=== PATIENT | male | born 1985 | race Caucasian/White ===

== ENCOUNTER 2019-04-09 | Emergency (ER) | payer OTHER ==
[~2019-04-09] VITALS: Ht 180.3 cm; Wt 73.0 kg
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
--- NOTE | 2019-04-09 00:19 | NUR ---
DR OLIVER IS AT THE BEDSIDE.
[2019-04-09 00:29] LABS: BASOPHILS # (AUTO) 0.1 /CMM (0.0-0.2); HEMOGLOBIN 17.8 g/dL (13.5-17.5); LYMPHOCYTES # (AUTO) 3.4 /CMM (0.8-4.8); MONOCYTES # (AUTO) 0.7 /CMM (0.1-1.30); NEUTROPHILS # (AUTO) 7.1 /CMM (1.8-8.9)
[2019-04-09] MEDS ORDERED: IV NS 0.9% 1,000 ML BAG IV ONE (00:30)
[2019-04-09 00:32] LABS: BASOPHILS % (AUTO) 1.2 % (0.0-2.0); EOSINOPHILS % (AUTO) 0.5 % (0.0-6.0); HEMATOCRIT 52 % (39-51); LYMPHOCYTES % (AUTO) 29.8 % (20.0-44.0); MEAN CORPUSCULAR HGB CONC 34 g/dl (31.0-36.0); MEAN CORPUSCULAR VOLUME 100 fL (80-96); MONOCYTES % (AUTO) 6.6 % (2.0-12.0); NEUTROPHILS % (AUTO) 61.9 % (43.0-81.0); PLATELET COUNT (AUTO) 363 /CMM (150-450); RED BLOOD CELL COUNT(AUTO) 5.24 MIL/uL (4.5-6.0); WHITE BLOOD COUNT (AUTO) 11.4 K/uL (4.3-11.0)
--- NOTE | 2019-04-09 00:34 | NUR ---
URINE COLLECTED AND SENT TO LAB
[2019-04-09 00:43] LABS: ALBUMIN 3.8 g/dL (3.4-5.0); BILIRUBIN,DIRECT 0.1 mg/dL (0.0-0.2); BILIRUBIN,TOTAL 0.4 mg/dL (0.2-1.0); CALCIUM, SERUM 8.7 mg/dL (8.5-10.1); CREATININE 1.2 mg/dL (0.6-1.3); SALICYLATE 2.1 mg/dL (2.8-20.0); TOTAL PROTEIN, SERUM 7.8 g/dL (6.4-8.2)
[2019-04-09 00:44] LABS: POTASSIUM 2.8 mmol/L (3.5-5.1)
--- NOTE | 2019-04-09 01:00 | NUR ---
PT REQUESTED WATER. PT REC'D A CUP OF WATER AND TOLERATED PO WELL.
--- NOTE | 2019-04-09 01:05 | NUR ---
Patient is resting comfortably in bed. Easily aroused. VSS.
[2019-04-09 01:06] LABS: THYROID STIMULATING HORMONE 5.563 uIU/mL (0.358-3.74)
--- NOTE | 2019-04-09 01:43 | NUR ---
[employer] LEFT. PT IS NOT IN CUSTODY
--- NOTE | 2019-04-09 01:55 | NUR ---
PT REC'D A SECOND URINE.
[2019-04-09] MEDS ORDERED: POTASSIUM CHLORIDE 20 MEQ TAB.PRT.SR PO ONE ×2 (02:15→02:30)
--- NOTE | 2019-04-09 02:23 | NUR ---
IV removed. Catheter intact and site benign. Pressure and 4x4 applied to site. No bleeding noted. Patient discharged to home in stable condition. Written and verbal after care instructions given. Patient verbalizes understanding of instruction. PT WILL CALL HIS FRIEND TO PICK HIM UP. PT AMBULATED OUT WITH A STEADY GAIT. VSS. PT TO CALL AN UBER TO PICK HIM UP. MD IS AWARE AND OK'D DC HOME.
[2019-04-09 02:24] VITALS: BP 137/87
== END 2019-04-09 02:25 | disposition home or self-care (01) ==
LOC: ER 00:03
DX: F10.129 Alcohol abuse with intoxication, unspecified (principal); F14.10 Cocaine abuse, uncomplicated; F17.210 Nicotine dependence, cigarettes, uncomplicated; Z90.89 Acquired absence of other organs; V49.69XA Unspecified car occupant injured in collision with other motor vehicles in traffic accident, initial encounter; Y93.89 Activity, other specified; Y92.89 Other specified places as the place of occurrence of the external cause; Y99.8 Other external cause status; Y90.4 Blood alcohol level of 80-99 mg/100 ml
CPT/HCPCS: 36415; 71045; 80048; 80076; 80305; 80307; 80329; 84443; 85025; 93005; 99284; 99406; G0480; J7030